=== PATIENT | male | born 1950 | race Caucasian/White ===

== ENCOUNTER 2018-05-17 19:20 | Inpatient (IN) | payer MEDICARE ==
[~2018-05-17 19:20] MED LIST: Iopamidol 370 76% 100 ML VIAL ONE
[2018-05-17 19:38] LABS: #Basophils 0.1 thou/uL (0.0-0.2); #Eosinphils 0.1 thou/uL (0.0-0.7); #Lymphocytes 1.7 thou/uL (1.20-3.40); #Monocytes 0.8 thou/uL (0.11-0.59); #Neutrophils 11.7 thou/uL (1.40-6.50); %Basophils 0.6 % (0.0-1.0); %Eosinophils 0.7 % (0.0-10.0); %Lymphocytes 11.5 % (21.0-51.0); %Monocytes 5.4 % (0.0-10.0); %Neutrophils 81.8 % (42.0-75.0); Hemoglobin 14.7 g/dL (14.0-18.0); Mean Corpuscular Hemoglobin 32.3 pg (27.0-31.0); Mean Corpuscular Volume 94.8 fL (78.0-98.0); Mean Platelet Volume 7.1 fL (7.4-10.4); Platelet Count 245 thou/uL (130-400); RBC Distribution Width 13.1 % (11.5-14.5); Red Blood Cell (RBC) Count 4.56 mill/uL (4.70-6.10); White Blood Cell (WBC) Count 14.3 thou/uL (4.8-10.8)
[2018-05-17 19:44] LABS: PTT 25.8 SEC (22.9-36.1); Prothrombin Time 12.9 SEC (12.0-14.7)
[2018-05-17] MEDS ORDERED: Aggrastat 12.5 MG/250 ML 250 ML ONE (19:56)
[2018-05-17] MEDS ORDERED: Heparin 10,000 UNITS/1 ML VIAL ONE (19:56)
[2018-05-17 19:57] LABS: ALT (SGPT) 14 U/L (8-55); AST (SGOT) 19 U/L (5-34); Albumin 4.3 g/dL (3.4-4.8); Alkaline Phosphatase 88 U/L (40-150); Anion Gap 17 mmol/L (10-20); BUN (Urea Nitrogen) 13 mg/dL (8.4-25.7); Bilirubin, Total 0.2 mg/dL (0.2-1.2); Calc. Creatinine Clearance 0 mL/min (70-130); Calcium 9.1 mg/dL (7.8-10.44); Carbon Dioxide 23 mmol/L (23-31); Chloride 105 mmol/L (98-107); Estimated GFR-MDRD 72; Globulin 2.8 g/dL (2.4-3.5); Glucose 143 mg/dL (80-115); Potassium 3.7 mmol/L (3.5-5.1); Protein, Total 7.1 g/dL (5.8-8.1); Sodium 141 mmol/L (136-145)
[2018-05-17] MEDS ORDERED: Nitroglycerin 0.4 MG TAB (25 Tab Bottle) SL PRN (20:13)
[2018-05-17] MEDS ORDERED: Aggrastat 12.5 MG/250 ML 250 ML IVPB SCH (20:15)
[2018-05-17] MEDS ORDERED: Communication Order-Pharmacy FS SCH (20:40)
[2018-05-17] MEDS ORDERED: Diazepam 5 MG TAB PO PRN (20:40)
[2018-05-17 20:46] LABS: CKMB 8.1 ng/mL (0-6.6)
[2018-05-17] MEDS ORDERED: Atorvastatin Calcium 40 MG TAB PO SCH (21:00)
[2018-05-17 21:02] LABS: Hemoglobin A1c 5.7 % (4.0-6.0)
[2018-05-17] MEDS ORDERED: Sodium Chloride 0.9% 250 ML 250 ML IV SCH (21:45)
[2018-05-17] MEDS: Morphine 4 MG/ML VIAL SLOW IVP PRN (22:06)
--- NOTE | 2018-05-17 22:11 | RAD ---
CHEST ONE VIEW PORTABLE: HISTORY: A 67-year-old male, preoperative, for open heart surgery. FINDINGS: Monitor leads overly the chest. Heart size is within normal limits. Lungs are clear. IMPRESSION: 1. No significant acute intrathoracic disease. 2. Atherosclerosis of the aorta. POS: JUN
--- NOTE | 2018-05-17 22:56 | HP ---
CHIEF COMPLAINT: Chest pain. HISTORY OF PRESENT ILLNESS: Mr. Lopez is a pleasant 67-year-old white gentleman, who comes to the hospital after 1 hour of chest pain. He was driving around, has a sudden onset of chest pain. EMS was called and they came to take him and he was air flighted into the hospital from [place] for anterior elevations on the EKG. He was brought in with about 6/10 chest pain. He was taken emergently to the catheterization lab, where he was found to have severe multivessel disease. The culprit vessel is probably an occluded diagonal that is flush occluded and we did not see where it comes out of the LAD. We just see very tiny collateral flow to it, so Surgery was consulted. His pain is much better controlled at this time. PAST MEDICAL HISTORY: 1. Hypertension. 2. Hyperlipidemia. 3. Osteoarthritis. PAST SURGICAL HISTORY: Carpal tunnel release just a week ago. SOCIAL HISTORY: Smokes a pack a day for about 50 years. No alcohol or drug use. OUTPATIENT MEDICATIONS: 1. Prednisone. 2. Uloric. 3. Pantoprazole. 4. Metoprolol succinate 200 mg a day. 5. Crestor 20 mg a day. ALLERGIES: SULFA DRUGS. REVIEW OF SYSTEMS: A 12-point review of systems was done and was found to be negative other than stated in the history of present illness. FAMILY HISTORY: No early coronary artery disease. PHYSICAL EXAMINATION: VITAL SIGNS: Temperature 97.2, pulse 99, respiratory rate 16, saturating 100% on 2 L, blood pressure 146/69. GENERAL: Awake, alert, and oriented x3, in no distress. HEENT: Normocephalic, atraumatic. NECK: Supple. LUNGS: Clear. CARDIOVASCULAR: S1, S2. No S3 or S4. No murmurs. ABDOMEN: Soft. Positive bowel sounds. EXTREMITIES: No edema. SKIN: Warm and dry. LABORATORY DATA: Laboratory work was reviewed. CBC with a white count of 14, hemoglobin of 14, hematocrit 43, platelet count 245. Coags were reviewed. Chemistries were reviewed. Troponin initially 0.8, a CK-MB of 8.1, normal GFR. Chest x-ray was unremarkable. Atherosclerosis of the aorta was seen. ASSESSMENT: 1. Acute anterior ST-elevation myocardial infarction. 2. Multivessel coronary artery disease. 3. Hyperlipidemia. 4. Hypertension. PLAN: 1. Flush occlusion of a diagonal branch, thought to be the culprit. This is a very small artery from what I can tell, and there is no area where we can try to open as we do not even see a stub to see where comes from. He does have multivessel disease and this is better treated with bypass surgery. Dr. Seymour has already evaluated the patient and we will plan on doing a coronary artery bypass grafting tomorrow morning. 2. Continue supportive care overnight. We will do an Aggrastat drip until 4:00 a.m. in preparation for his bypass tomorrow morning. 3. Continue other medications for now. 4. Full code. 5. Disposition. Pending clinical evolution. Job ID: [id number]
--- NOTE | 2018-05-18 02:25 | CON ---
DATE OF CONSULTATION: 05/17/2018 REASON FOR CONSULTATION: Evaluate the patient for coronary artery bypass grafting. HISTORY OF PRESENT ILLNESS: Mr. Lopez presented with history of chest pain beginning this evening. He was brought to the emergency department and found to have ST-elevation anteriorly, was urgently taken to the bottle labeler and found to have severe three-vessel disease. The culprit vessel is a small diagonal. He is chest pain free on the table with Aggrastat running. He has no previous cardiac history. He does have a history of hypertension, takes his antihypertensives at home. His peak troponin was 0.8 and CK-MB is 8.1. I have been asked to see him to discuss coronary artery bypass grafting. PAST MEDICAL HISTORY: 1. Hypertension. 2. Tobacco abuse. 3. Degenerative spine disease. PAST SURGICAL HISTORY: Multiple spine and orthopedic surgeries. ALLERGIES: SULFA. CURRENT MEDICATIONS: 1. Aspirin 81 mg daily. 2. Lipitor 80 mg at bedtime. SOCIAL HISTORY: He smokes half to one-pack of cigarettes a day. 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 PHYSICAL EXAMINATION: GENERAL: He is a well-developed, well-nourished man, resting comfortably in bed. VITAL SIGNS: His heart rate is 100 and regular, blood pressure is 147/89. HEENT: Sclerae nonicteric. Pupils are equal and round bilaterally. NECK: Supple. There is no carotid bruit. CHEST: Clear bilaterally with distant breath sounds. HEART: Rhythm is regular. ABDOMEN: Soft, nontender. EXTREMITIES: No cyanosis, clubbing, or edema. VASCULAR: Palpable carotid, radial, femoral, dorsalis pedis pulses bilaterally. VENOUS: There are no venous varicosities or venous stasis changes. LABORATORY DATA: Potassium is 3.7, creatinine is 1.03, hemoglobin is 14.7, and platelet count is 245,000. PT/INR is 1.0. ASSESSMENT AND PLAN: This is a pleasant 67-year-old gentleman with anterior ST-elevation myocardial infarction from very small diagonal. He otherwise has three-vessel disease including left anterior descending artery, circumflex, and right coronary artery, bypassable targets included left anterior descending artery, OM and distal right. Risks, benefits, and options of coronary artery bypass grafting were discussed with the patient and he is agreeable to proceed tomorrow. Job ID: [id number]
[2018-05-18] MEDS ORDERED: Nitroglycerin 50 MG/250 ML BOT 250 ML IVPB SCH (02:30)
[2018-05-18] MEDS: Morphine 4 MG/ML VIAL SLOW IVP PRN ×2 (02:40→06:07)
[2018-05-18 02:53] LABS: #Lymphocytes 1.1 thou/uL (1.20-3.40); #Monocytes 0.6 thou/uL (0.11-0.59); #Neutrophils 11.8 thou/uL (1.40-6.50); %Basophils 0.3 % (0.0-1.0); %Monocytes 4.1 % (0.0-10.0); %Neutrophils 87.5 % (42.0-75.0); Hemoglobin 13.3 g/dL (14.0-18.0); Mean Corpuscular HGB CONC 34.2 g/dL (32.0-36.0); Mean Corpuscular Hemoglobin 32.2 pg (27.0-31.0); Mean Corpuscular Volume 94.1 fL (78.0-98.0); Mean Platelet Volume 7.4 fL (7.4-10.4); Platelet Count 244 thou/uL (130-400); RBC Distribution Width 13.1 % (11.5-14.5); Red Blood Cell (RBC) Count 4.13 mill/uL (4.70-6.10); White Blood Cell (WBC) Count 13.5 thou/uL (4.8-10.8)
[2018-05-18 03:20] LABS: ALT (SGPT) 18 U/L (8-55); AST (SGOT) 95 U/L (5-34); Albumin 4.1 g/dL (3.4-4.8); Alkaline Phosphatase 82 U/L (40-150); Anion Gap 15 mmol/L (10-20); BUN (Urea Nitrogen) 11 mg/dL (8.4-25.7); Bilirubin, Total 0.3 mg/dL (0.2-1.2); Calc. Creatinine Clearance 117 mL/min (70-130); Calcium 8.6 mg/dL (7.8-10.44); Carbon Dioxide 20 mmol/L (23-31); Cardiac Risk 5.6 (Less than 4.5); Chloride 106 mmol/L (98-107); Cholesterol 203 mg/dl (< 200 Desired); Estimated GFR-MDRD Greater than 90; Globulin 2.4 g/dL (2.4-3.5); Glucose 159 mg/dL (80-115); HDL Cholesterol 36 mg/dL (>60 Neg Risk); LDL Cholesterol, Calculated 108 mg/dL; Potassium 4.2 mmol/L (3.5-5.1); Protein, Total 6.5 g/dL (5.8-8.1); Sodium 137 mmol/L (136-145); Triglycerides 296 mg/dL (Less than 150)
[2018-05-18 03:29] LABS: CKMB 150.8 ng/mL (0-6.6); Troponin I 10.414 ng/mL (< 0.028)
[2018-05-18] MEDS ORDERED: Metoprolol Tartrate 25 MG TAB PO SCH (05:45)
[2018-05-18] MEDS ORDERED: Albumin 5% 500 ML ONE (07:23)
[2018-05-18] MEDS ORDERED: Heparin 10,000 UNITS/1 ML VIAL 30,000 UNITS in Sodium Chloride 0.9% 1,000 ML FS SCH (08:00)
[2018-05-18] MEDS ORDERED: Norepinephrine 8 MG/0.9% NS 250 ML ONE ×2 (08:01→08:03)
[2018-05-18] MEDS ORDERED: Fentanyl 250 MCG/5 ML VIAL ONE (08:01)
[2018-05-18] MEDS ORDERED: Vecuronium 10 MG VIAL ONE ×2 (08:01→21:14)
[2018-05-18] MEDS ORDERED: Midazolam HCl 2 mg/2 ml Vial ONE (08:01)
[2018-05-18] MEDS ORDERED: Dexmedetomidine 200 MCG/2 ML VIAL ONE (08:02)
[2018-05-18] MEDS ORDERED: Potassium Chloride 20 MEQ/100 ML PREMIX BAG IVPB PRN (11:31)
[2018-05-18] MEDS ORDERED: Bisacodyl 5 MG TAB PO PRN (11:31)
[2018-05-18] MEDS ORDERED: Ondansetron PF 4 MG/2 ML Vial IVP PRN (11:31)
[2018-05-18] MEDS ORDERED: Mag-Al 1200 mg/1200 mg/30 ML UDCUP PO PRN (11:31)
[2018-05-18] MEDS ORDERED: Fentanyl 100 MCG/2 ML VIAL SLOW IVP PRN (11:31)
[2018-05-18] MEDS ORDERED: Magnesium 2 GM/50 ML 2 GM in Premix Bag 1 BAG IVPB SCH (11:31)
[2018-05-18] MEDS ORDERED: Promethazine HCl 25 MG/ML VIAL IM PRN (11:31)
[2018-05-18] MEDS ORDERED: Morphine 4 MG/ML VIAL SLOW IVP PRN (11:31)
[2018-05-18] MEDS ORDERED: Norepinephrine 8 MG/0.9% NS 250 ML IVPB PRN (11:31)
[2018-05-18] MEDS ORDERED: Hetastarch 6% 500 ML 500 ML IVPB PRN (11:31)
[2018-05-18] MEDS ORDERED: CEFAZOLIN/Water 2 GM/20 ML SYRINGE SLOW IVP SCH (11:31)
[2018-05-18] MEDS ORDERED: HYDROcodone/Acetaminophen 5/325 mg Tablet PO PRN ×2 (11:31)
[2018-05-18] MEDS ORDERED: Acetaminophen 325 MG TAB PO PRN (11:31)
[2018-05-18] MEDS ORDERED: hydrALAZINE 20 MG/ML VIAL SLOW IVP PRN (11:31)
[2018-05-18] MEDS ORDERED: Bisacodyl 10 MG SUPP PR PRN (11:31)
[2018-05-18] MEDS ORDERED: D5 1/2 NS w/20 mEq KCL 1,000 ML IV SCH (11:31)
[2018-05-18] MEDS ORDERED: Guaifenesin DM 100-10/5 ML UDCUP PO PRN (11:31)
[2018-05-18] MEDS ORDERED: Nitroglycerin 50 MG/250 ML BOT 250 ML IVPB PRN (11:31)
[2018-05-18] MEDS ORDERED: Dextrose 5% in Water 1,000 ML IV PRN (12:01)
[2018-05-18] MEDS ORDERED: Dextrose 50% Abboject 50 ML SYRINGE SLOW IVP PRN (12:01)
--- NOTE | 2018-05-18 12:10 | RAD ---
CHEST 1 VIEW: HISTORY: Heart surgery. FINDINGS: Comparison 05/17/2018. FINDINGS: Cardiac silhouette is magnified by projection. Pulmonary vasculature is upper limits of normal and a ccentuated by shallow inspiration. The tip of the endotracheal catheter overlies the thoracic inlet. The tip of a right subclavian cent ral venous catheter ascends to the right side of the neck. Mediastinal drain and left thoracostomy t ubes are in place without significant pneumothorax. Atelectasis at the right base. Focal nodular density projects over the right lateral lung base on the current exam. monitor and storage bin tender leads overlie the chest. IMPRESSION: 1. Postoperative changes of the chest since the previous exam. 2. Right-sided central venous catheter is favored to be a right subclavian catheter with tip directe d into the right internal jugular vein. 3. Possible right lateral lung base nodule. Continued followup with upright PA and lateral views of the chest is suggested. POS: AURELIANO
[2018-05-18] MEDS: Fentanyl 100 MCG/2 ML VIAL SLOW IVP PRN (12:12)
[2018-05-18] MEDS: Ketorolac Tromethamine 30 MG/ML VIAL IVP SCH ×3 (12:14→23:03)
[2018-05-18 12:21] LABS: INR-International Normal Ratio 1.3; PTT 31.6 SEC (22.9-36.1); Prothrombin Time 16.1 SEC (12.0-14.7)
[2018-05-18 12:36] LABS: Anion Gap 13 mmol/L (10-20); BUN (Urea Nitrogen) 10 mg/dL (8.4-25.7); Calc. Creatinine Clearance 121 mL/min (70-130); Calcium 7.7 mg/dL (7.8-10.44); Carbon Dioxide 20 mmol/L (23-31); Chloride 110 mmol/L (98-107); Estimated GFR-MDRD Greater than 90; Glucose 145 mg/dL (80-115); Potassium 4.8 mmol/L (3.5-5.1); Sodium 138 mmol/L (136-145)
[2018-05-18 12:42] LABS: Band 3 % (5-11); Hemoglobin 11.5 g/dL (14.0-18.0); Lymphocytes 6 % (21-51); MDiff Complete? YES; Mean Corpuscular HGB CONC 33.5 g/dL (32.0-36.0); Mean Corpuscular Hemoglobin 32.2 pg (27.0-31.0); Mean Platelet Volume 7.2 fL (7.4-10.4); Monocytes 16 % (0-10); Neutrophil 71 % (42-75); PLT Morphology Comment Appears Adequate; Platelet Count 192 thou/uL (130-400); RBC Distribution Width 13.2 % (11.5-14.5); Reactive Lymphocytes 4 % (0-10); Red Blood Cell (RBC) Count 3.57 mill/uL (4.70-6.10); White Blood Cell (WBC) Count 22.9 thou/uL (4.8-10.8)
[2018-05-18 12:45] LABS: Actual Bicarbonate (HCO3a) 20.5 mEq/L (22-28); CO2 Tension 49.5 mmHg (35.0-45.0); Calcium, Ionized 1.05 mmol/L (1.12-1.30); Carboxyhemoglobin (COHb) 1.7 gm% (0.0-3.0); Hemoglobin (Hb) 12.3 g/dL (14.0-18.0); O2 Tension (PaO2) 91.3 mmHg (> 80.0); Potassium - ABG Lab 4.35 mmol/L (3.70-5.30)
[2018-05-18] MEDS: Insulin Regular 300 UNITS/3 ML VIAL SC PRN ×4 (12:46→22:57)
[2018-05-18] MEDS ORDERED: Sodium Bicarb 50 MEQ/50 ML Abboject 8.4% SYRINGE IVP SCH (12:48)
[2018-05-18] MEDS ORDERED: Sodium Bicarb 50 MEQ/50 ML VIAL ONE ×2 (12:49→21:14)
[2018-05-18 13:27] LABS: ALV-art Gradient 132.025 (0-20); Puncture Site ALINE; pH, Arterial 7.24 (7.35-7.45)
[2018-05-18] MEDS: CEFAZOLIN 2 GM/50 ML-DEXTROSE 2 GM in Premix Bag 1 BAG IVPB SCH ×2 (13:28→20:59)
--- NOTE | 2018-05-18 13:35 | OP ---
DATE OF PROCEDURE: 05/18/2018 PREOPERATIVE DIAGNOSES: Coronary artery disease/status post ST-elevation myocardial infarction/hypertension/hyperlipidemia, and tobacco abuse. POSTOPERATIVE DIAGNOSES: Coronary artery disease/status post ST-elevation myocardial infarction/hypertension/hyperlipidemia, and tobacco abuse. PROCEDURES PERFORMED: 1. Coronary artery bypass grafting x3 - left internal mammary artery 1.5 mm distal left anterior descending-good conduit, small target. 2. Reverse saphenous vein to 1.5 mm PDA-good conduit, small target. 3. Reverse saphenous vein to 2.0 mm terminal OM-good conduit and target. Note that both the PDA and terminal OM grafts were brought around the right side of the heart. There were no bypassable diagonal targets. CO-SURGEON: Dr. Tommie Smith. ANESTHESIA: General endotracheal - Dr. Sony Jones. PUMP TIME: 53 minutes. CROSS-CLAMP TIME: 29 minutes. LOW CORE TEMPERATURE: 34 degrees Celsius. MANAGER DRUG: Orestes Whitaker DRAINS: 24-Occitan chest tubes x2. DRIPS: None. TRANSFUSIONS: None. DESCRIPTION OF PROCEDURE: After consent was obtained, the patient was brought to operating room, and placed in supine position on the operating table. Appropriate central line was placed, and general endotracheal anesthesia induced. Chest, abdomen, and legs were prepped and draped in usual sterile fashion. Greater saphenous vein was harvested from the left thigh utilizing an endoscopic technique. Wound was closed in layers. Median sternotomy was performed. Left internal mammary artery was harvested as a pedicle graft. The patient was systemically heparinized. The distal pedicle was divided with the use of papaverine. pericardium was divided with electrocautery. Pericardial stay sutures were placed. Aortic and atrial cannulation was performed. After adequate heparinization, retrograde priming was performed. The patient was placed on cardiopulmonary bypass. Distal targets were marked. Aortic cross-clamp was applied, and antegrade sanguineous cardioplegic arrest obtained. 1 L of antegrade cold [place] cardioplegia was given. Topical cold solution was used. Reverse saphenous vein was anastomosed to PDA in an end-to-side fashion with running 7-0 Prolene suture. Anastomosis was tested and it was hemostatic. Reverse saphenous vein was anastomosed to terminal OM in an end-to-side fashion with running 7-0 Prolene suture. Anastomosis was tested and it was hemostatic. Mammary artery was brought through a window in the pericardium and anastomosed the LAD in an end-to-side fashion with running 7-0 Prolene suture. On release, mammary claims good occluding anastomosis and good distal flow. Pedicles secured with interrupted six-0 Prolene suture. The cross-clamp was removed and partial occluding clamp placed. Saphenous veins were anastomosed. Grafts were marked with a clip. Partial occluding clamp was removed and graft tear. Anastomoses were inspected for hemostasis which was good. The patient was warmed and weaned from cardiopulmonary bypass. After resumption of sinus rhythm, good hemodynamics, temperature greater than 36.5, bypass was discontinued. Transfusion was given. Protamine was administered. Decannulation performed, and pursestring suture secured. A 24-Occitan chest tubes x2 placed in the mediastinum. The aortic cannulation site was reinforced with 4-0 Prolene suture. After adequate hemostasis had been obtained, the sternum was treated with vancomycin paste. The sternum was closed with #7 wire, three in the manubrium, and one of the distal sternum. Forceps ties were placed in the body of the sternum. Sternum was treated with platelet rich plasma. Wires were twisted. The ties were tied and cut. Wound was irrigated. Platelet poor plasma was closed in multiple layers. Dermabond was applied to the skin incision. Sterile dressings were applied. The patient transferred to the intensive care unit in stable critical condition inside. Job ID: [id number] MTDD
[2018-05-18 17:43] LABS: Hemoglobin 11.9 g/dL (14.0-18.0)
[2018-05-18 17:51] LABS: Potassium 4.5 mmol/L (3.5-5.1)
--- NOTE | 2018-05-18 18:38 | PDOC.CTH ---
Cardiology Progress Note - Subjective He had his CABG x 3 today. Currently intubated at time of my evaluation. - Objective Vital Signs Temp Pulse Resp BP Pulse Ox 05/18/18 16:12 80 14 92 L 05/18/18 13:51 77 16 96 05/18/18 13:25 81 14 95 05/18/18 12:25 81 109/51 L 05/18/18 12:11 77 13 97 05/18/18 12:00 13 97 05/18/18 07:14 100 05/18/18 07:00 97.7 F Weight 207 lb 7.28 oz 05/17/18 05/18/18 05/19/18 06:59 06:59 06:59 Intake Total 690 230 Output Total 975 585 Balance -285 -355 - Physical Examination General/Neuro: other: (S/I) Neck: no JVD present Lungs: unlabored respirations Heart: RRR Abdomen: NT/ND Extremities: + edema B (1+) - Telemetry Telemetry Rhythm: NSR - Labs Result Diagrams: 05/18/18 17:26 05/18/18 17:26 Troponin/CKMB CK-MB (CK-2) 150.8 ng/mL (0-6.6) H* 05/18/18 02:47 Troponin I 10.414 ng/mL (< 0.028) H* 05/18/18 02:47 - Assessment/Plan 1. Anterolateral STEMI 2. Severe multivessel CAD. 3. S/P CABG x 3, RUELAS to LAD, SVG to OM and SVG to RCA. PLAN: - Continue supportive care. - Aspirin and statin for life. - BB and ACEI once BP allows and tolerating PO.
[2018-05-18] MEDS ORDERED: Famotidine/PF 20 mg/2ml Vial SLOW IVP SCH (21:00)
[2018-05-18] MEDS ORDERED: Heparin 30,000 units/30 ml VIAL ONE (21:14)
[2018-05-18] MEDS ORDERED: Heparin 5,000 UNITS/ML VIAL ONE (21:14)
[2018-05-18] MEDS ORDERED: Aminocaproic Acid 5 GM/20 ML VIAL ONE (21:14)
[2018-05-18] MEDS ORDERED: Thrombin 5000 UNITS/5 ML VIAL ONE (21:14)
[2018-05-18] MEDS ORDERED: CEFAZOLIN 1 GM VIAL ONE (21:14)
[2018-05-18] MEDS ORDERED: PROPOFOL 200 MG/20 ML VIAL ONE (21:14)
[2018-05-18] MEDS ORDERED: Lidocaine 1% PF 5 ML VIAL ONE (21:14)
[2018-05-18] MEDS ORDERED: Cardioplegic Soln 1,000 ML BAG ONE (21:14)
[2018-05-18] MEDS ORDERED: Papaverine 60 MG/2 ML VIAL ONE (21:14)
[2018-05-18] MEDS ORDERED: Mannitol 12.5 GM/50 ML ONE (21:14)
[2018-05-18] MEDS ORDERED: Protamine Sulfate 250 MG/25 ML VIAL ONE (21:14)
[2018-05-18] MEDS ORDERED: Magnesium 5 GM/10 ML VIAL ONE (21:14)
[2018-05-18] MEDS ORDERED: Potassium Chloride 60 MEQ/30 ML VIAL ONE (21:14)
[2018-05-18] MEDS ORDERED: Calcium Chloride 1 GM/10 ML Abboject SYRINGE ONE (21:14)
[2018-05-18] MEDS ORDERED: Sterile Water 10 ML VIAL ONE (21:14)
[2018-05-18] MEDS ORDERED: Lidocaine 2% PF 100 mg/5 ml Syringe ONE (21:14)
[2018-05-19 03:58] LABS: Anion Gap 12 mmol/L (10-20); BUN (Urea Nitrogen) 13 mg/dL (8.4-25.7); Calc. Creatinine Clearance 110 mL/min (70-130); Calcium 7.9 mg/dL (7.8-10.44); Carbon Dioxide 22 mmol/L (23-31); Chloride 109 mmol/L (98-107); Estimated GFR-MDRD 87; Glucose 138 mg/dL (80-115); Potassium 4.3 mmol/L (3.5-5.1); Sodium 139 mmol/L (136-145)
[2018-05-19] MEDS: Insulin Regular 300 UNITS/3 ML VIAL SC PRN (04:50)
[2018-05-19] MEDS: Ketorolac Tromethamine 30 MG/ML VIAL IVP SCH ×3 (05:01→18:21)
[2018-05-19] MEDS: CEFAZOLIN 2 GM/50 ML-DEXTROSE 2 GM in Premix Bag 1 BAG IVPB SCH (05:01)
[2018-05-19 06:08] LABS: #Lymphocytes 1.5 thou/uL (1.20-3.40); #Monocytes 0.9 thou/uL (0.11-0.59); #Neutrophils 8.8 thou/uL (1.40-6.50); %Basophils 0.3 % (0.0-1.0); %Eosinophils 0.3 % (0.0-10.0); %Lymphocytes 13.4 % (21.0-51.0); Mean Corpuscular HGB CONC 32.8 g/dL (32.0-36.0); Mean Corpuscular Hemoglobin 31.5 pg (27.0-31.0); Mean Corpuscular Volume 95.8 fL (78.0-98.0); Mean Platelet Volume 7.9 fL (7.4-10.4); Platelet Count 178 thou/uL (130-400); RBC Distribution Width 13.2 % (11.5-14.5); Red Blood Cell (RBC) Count 3.51 mill/uL (4.70-6.10); White Blood Cell (WBC) Count 11.3 thou/uL (4.8-10.8)
--- NOTE | 2018-05-19 08:39 | RAD ---
AP VIEW CHEST: 05/19/2018 HISTORY: Open heart surgery. COMPARISON: 05/18/2018 FINDINGS: AP view chest demonstrates a right subclavian central line migrating up the right internal jugular. Sternotomy wires are seen. A small left-sided pleural effusion is seen. The area of soft tissue density in the right lung base is difficult to visualize on this radiograph a nd appears to be less pronounced. Correlate with follow-up chest radiographs with PA and lateral views of the chest, to better evaluate the right lung base, electively. The patient has been extubated. The left-sided chest tube appears to have been removed. A mediastin al drain is in place. No evidence of pneumothorax is seen. IMPRESSION: 1. Interval extubation of the patient. 2. Interval development of a small left-sided pleural effusion. POS: AURELIANO
[2018-05-19] MEDS: Aspirin 325 MG TAB PO SCH (08:45)
[2018-05-19] MEDS: Magnesium 2 GM/50 ML 2 GM in Premix Bag 1 BAG IVPB SCH (08:46)
--- NOTE | 2018-05-19 17:07 | PDOC.CTH ---
Cardiology Progress Note - Subjective He is now extubated. Doing very well. - Objective Vital Signs Temp Pulse Resp Pulse Ox 05/19/18 14:12 100 05/19/18 14:11 91 18 100 05/19/18 12:00 97.8 F 05/19/18 08:00 90 L 05/19/18 07:11 94 L 05/19/18 07:09 86 14 94 L Weight 208 lb 8.917 oz 05/18/18 05/19/18 05/20/18 06:59 06:59 06:59 Intake Total 690 1232 400 Output Total 975 1295 370 Balance -285 -63 30 - Physical Examination General/Neuro: alert & oriented x3, NAD Neck: no JVD present Lungs: unlabored respirations, other: (Coarse breath sounds. ) Heart: RRR Abdomen: NT/ND Extremities: + edema B (1+) - Telemetry Telemetry Rhythm: NSR - Labs Result Diagrams: 05/19/18 03:36 05/19/18 03:36 Troponin/CKMB CK-MB (CK-2) 150.8 ng/mL (0-6.6) H* 05/18/18 02:47 Troponin I 10.414 ng/mL (< 0.028) H* 05/18/18 02:47 - Assessment/Plan 1. Anterolateral STEMI 2. Severe multivessel CAD. 3. S/P CABG x 3, RUELAS to LAD, SVG to OM and SVG to RCA. PLAN: - Aspirin and statin for life. - BB and ACEI once BP allows and tolerating PO.
--- NOTE | 2018-05-19 19:32 | CON ---
DATE OF CONSULTATION: 05/19/2018 HISTORY OF PRESENT ILLNESS: Mr. Lopez is a pleasant 67-year-old male, who underwent coronary artery bypass grafting yesterday morning with RUELAS to his LAD , saphenous vein to his PDA, and saphenous vein to his terminal obtuse marginal. He has been extubated per protocol. He looks reasonably well and says he is comfortable, though he is complaining of a cough because whenever he lays down flat. PAST MEDICAL HISTORY: Remarkable for lipid disorder, hypertension, and degenerative arthritis. PAST SURGICAL HISTORY: He recently had a carpal tunnel release. FAMILY HISTORY: Not obtained. SOCIAL HISTORY: He is pack-a-day smoker. His last cigarette was on a tractor just prior to his admission, not a daily drinker. MEDICATIONS: Prior to admission, he was on: 1. Prednisone. 2. Uloric. 3. Protonix. 4. Metoprolol. 5. Crestor. ALLERGIES: HE REPORTS ALLERGY TO SULFA DRUGS. REVIEW OF SYSTEMS: Ten-point review of systems completed, otherwise negative except for some mild chest and leg discomfort after surgery. PHYSICAL EXAMINATION: GENERAL: He is in no distress. VITAL SIGNS: Blood pressure 118/82, heart rate 98, respiratory rate 14, and oximetry is 94%. HEENT: Pupils are equal. Sclerae are anicteric. NECK: Supple. No lymphadenopathy. LUNGS: Remarkable for scattered wheezes. HEART: Regular rhythm. S1 and S2 are normal. ABDOMEN: Soft and nontender. EXTREMITIES: Without clubbing, cyanosis, or edema. IMAGING STUDIES: Chest radiograph suggestive of atelectasis or small effusion of the left base. LABORATORY DATA: White count 11.3, hemoglobin 11.0, platelets 178. Sodium 139, potassium 4.3, chloride 109, bicarb 22, BUN 13, and creatinine 0.88. IMPRESSION: 1. Status post coronary artery bypass grafting. 2. Probable chronic obstructive pulmonary disease with mild bronchospasm. 3. History of an anterolateral myocardial infarction. PLAN: We will be happy to follow with the other physicians caring for Mr. Lopez, underwent my visit with him, try to place him on some nasal ipratropium, see if this helps with his cough. TIME SPENT: This was a 70-minute consult, with greater than 50% of the time spent on the unit coordinating care. Job ID: [id number] [facility]
[2018-05-19] MEDS ORDERED: Digoxin 0.5 MG/2 ML AMP ONE (19:42)
[2018-05-19] MEDS ORDERED: Digoxin 0.5 MG/2 ML AMP SLOW IVP SCH (19:45)
[2018-05-19] MEDS ORDERED: Amiodarone HCl 150 MG in Dextrose 5% in Water 100 ML IVPB SCH (19:45)
[2018-05-19] MEDS: Amiodarone HCl 450 MG in Dextrose 5% in Water 250 ML IVPB SCH (20:02)
[2018-05-19] MEDS: Atorvastatin Calcium 40 MG TAB PO SCH (21:15)
[2018-05-19] MEDS: Ipratropium Bromide 0.06% Nasal Inhaler 15ml NASAL SCH (21:15)
[2018-05-19] MEDS: Fentanyl 100 MCG/2 ML VIAL SLOW IVP PRN (21:59)
[2018-05-19] MEDS: Digoxin 0.5 MG/2 ML AMP SLOW IVP SCH (22:35)
[2018-05-20] MEDS: Ketorolac Tromethamine 30 MG/ML VIAL IVP SCH ×4 (00:29→18:27)
[2018-05-20] MEDS: Metoprolol Tartrate 5 MG/5 ML VIAL IVP SCH ×2 (00:32→03:27)
[2018-05-20] MEDS: Amiodarone HCl 450 MG in Dextrose 5% in Water 250 ML IVPB SCH ×2 (04:00→18:27)
[2018-05-20 04:43] LABS: Anion Gap 10 mmol/L (10-20); BUN (Urea Nitrogen) 14 mg/dL (8.4-25.7); Calc. Creatinine Clearance 116 mL/min (70-130); Calcium 8.1 mg/dL (7.8-10.44); Carbon Dioxide 25 mmol/L (23-31); Chloride 106 mmol/L (98-107); Estimated GFR-MDRD Greater than 90; Glucose 129 mg/dL (80-115); Potassium 4.3 mmol/L (3.5-5.1); Sodium 137 mmol/L (136-145)
[2018-05-20] MEDS: Digoxin 0.5 MG/2 ML AMP SLOW IVP SCH (05:59)
[2018-05-20 07:51] LABS: Actual Bicarbonate (HCO3a) 21.6 mEq/L (22-28); Analyzer IN Cardio OR; Base Excess (BEa) -4.6 mEq/L (-2.0 to +3.0); CO2 Tension 44.7 mmHg (35.0-45.0); Calcium, Ionized 1.05 mmol/L (1.12-1.30); Carboxyhemoglobin (COHb) 0.7 gm% (0.0-3.0); Hemoglobin (Hb) 11.1 g/dL (14.0-18.0); O2 Tension (PaO2) 408.9 mmHg (> 80.0); Potassium - ABG Lab 4.59 mmol/L (3.70-5.30)
[2018-05-20 07:52] LABS: Actual Bicarbonate (HCO3v) 23 mEq/L (22-28); Analyzer IN Cardio OR; Base Excess -3.9 mEq/L (-2.0 to +3.0); Calcium, Ionized 0.98 mmol/L (1.16-1.32); Chloride (ABG LAB) 106 mmol/L (98-106); Hemoglobin (Hb) 9.2 g/dL (12.6-17.4); Sodium 134.5 mmol/L (133-146); pH (venous) 7.29 (7.32-7.43)
[2018-05-20 07:52] LABS: Actual Bicarbonate (HCO3a) 23.2 mEq/L (22-28); Analyzer IN Cardio OR; CO2 Tension 47.1 mmHg (35.0-45.0); Calcium, Ionized 0.95 mmol/L (1.12-1.30); Carboxyhemoglobin (COHb) 0.2 gm% (0.0-3.0); O2 Tension (PaO2) 348.1 mmHg (> 80.0); Potassium - ABG Lab 4.87 mmol/L (3.70-5.30); pH, Arterial 7.31 (7.35-7.45)
[2018-05-20 07:53] LABS: Actual Bicarbonate (HCO3a) 19.6 mEq/L (22-28); Analyzer IN Cardio OR; Base Excess (BEa) -4.9 mEq/L (-2.0 to +3.0); CO2 Tension 34.5 mmHg (35.0-45.0); Calcium, Ionized 1.02 mmol/L (1.12-1.30); Carboxyhemoglobin (COHb) 0.8 gm% (0.0-3.0); O2 Tension (PaO2) 441.7 mmHg (> 80.0); Potassium - ABG Lab 3.98 mmol/L (3.70-5.30); pH, Arterial 7.37 (7.35-7.45)
[2018-05-20 07:53] LABS: Actual Bicarbonate (HCO3a) 20.2 mEq/L (22-28); Analyzer IN Cardio OR; Base Excess (BEa) -3.4 mEq/L (-2.0 to +3.0); CO2 Tension 32.3 mmHg (35.0-45.0); Calcium, Ionized 1.03 mmol/L (1.12-1.30); Carboxyhemoglobin (COHb) 1.5 gm% (0.0-3.0); Hemoglobin (Hb) 12.5 g/dL (14.0-18.0); O2 Tension (PaO2) 417.3 mmHg (> 80.0); Potassium - ABG Lab 3.84 mmol/L (3.70-5.30); pH, Arterial 7.42 (7.35-7.45)
[2018-05-20 07:59] LABS: Puncture Site ALINE
[2018-05-20 07:59] LABS: Puncture Site ALINE
[2018-05-20 08:00] LABS: Puncture Site ALINE
[2018-05-20 08:00] LABS: Puncture Site ALINE
--- NOTE | 2018-05-20 08:14 | RAD ---
PORTABLE UPRIGHT FRONTAL CHEST RADIOGRAPH: Date: 05/20/18 COMPARISON: 05/19/18. HISTORY: Evaluate chest following open heart surgery. FINDINGS: Dense pleural and parenchymal opacity noted in the inferior left lower lobe/lung base. Heart and medi astinal contours are stable. Midline sternotomy wires are noted. There is a vascular catheter on the right extending into the neck and incompletely imaged on this exam, stable. Drainage catheter overlying the left hemithorax and mediastinum on the prior examination have been re moved. IMPRESSION: Increased density in the left base, nonspecific. Postoperative changes as detailed above. POS: AURELIANO
[2018-05-20 09:17] VITALS: BMI 31.6
[2018-05-20] MEDS: Aspirin 325 MG TAB PO SCH (09:17)
[2018-05-20] MEDS: Magnesium 2 GM/50 ML 2 GM in Premix Bag 1 BAG IVPB SCH (09:18)
[2018-05-20] MEDS: Ipratropium Bromide 0.06% Nasal Inhaler 15ml NASAL SCH ×2 (09:18→22:03)
[2018-05-20] MEDS ORDERED: diphenhydrAMINE 25 MG CAP PO PRN (11:31)
[2018-05-20] MEDS ORDERED: Guaifenesin DM 100-10/5 ML UDCUP PO PRN (11:31)
[2018-05-20] MEDS ORDERED: Zolpidem Tartrate 5 MG TAB PO PRN (11:31)
[2018-05-20] MEDS ORDERED: Nitroglycerin 0.4 MG TAB (25 Tab Bottle) SL PRN (11:31)
[2018-05-20] MEDS ORDERED: Bisacodyl 10 MG SUPP PR PRN (11:31)
[2018-05-20] MEDS ORDERED: Milk Of Magnesia 30 ML UDCUP PO PRN (11:31)
[2018-05-20] MEDS ORDERED: Bisacodyl 5 MG TAB PO PRN (11:31)
[2018-05-20] MEDS ORDERED: Mineral Oil ENEMA PR PRN (11:31)
[2018-05-20] MEDS ORDERED: Artificial Tear Sol 15 ML BOT EA EYE PRN (11:31)
[2018-05-20] MEDS ORDERED: Carvedilol 3.125 MG TAB PO SCH (12:15)
[2018-05-20] MEDS ORDERED: Furosemide 40 MG TAB PO SCH (12:15)
[2018-05-20] MEDS ORDERED: Potassium Chloride 10 MEQ TAB PO SCH (12:15)
--- NOTE | 2018-05-20 16:30 | PRG ---
DATE OF SERVICE: 05/20/2018 SUBJECTIVE: Mr. Lopez is doing great. He is scheduled to be transferred out of the Critical Care Unit. OBJECTIVE: VITAL SIGNS: Heart rates in the 80s, blood pressure 127/78, and respiratory rate 17. Intake and output, positive 467. LUNGS: His wheezes are improved on examining his chest. HEART: Regular rhythm. ABDOMEN: Soft and nontender. EXTREMITIES: Without asymmetry or edema. LABORATORY DATA: White count yesterday was 11.3, hemoglobin 11.0, and platelets 178. Sodium 137, potassium 4.3, chloride 106, bicarbonate 25, BUN 14, creatinine 0.84, and glucose 129. IMPRESSION: 1. Status post coronary artery bypass grafting. 2. Underlying chronic obstructive pulmonary disease with mild bronchospasm. 3. Atelectasis and small effusion at left base on chest radiograph. PLAN: Continue supportive care. Transfer out. Physical therapy. He says he is ready to go home, but he wants a dressing taken off his leg. I have explained to him will be here at least few more days. Job ID: [id number]
--- NOTE | 2018-05-20 17:40 | PDOC.CTH ---
Cardiology Progress Note - Subjective Doing better. CT out. More comfortable. No BM's but passing gas. Went into afib overnight was started on amiodaron drip and back in sinus. - Objective Vital Signs Temp Pulse Pulse Pulse Resp BP BP 05/20/18 13:35 88 89 116/73 130/77 05/20/18 13:16 89 21 H 05/20/18 12:00 98.7 F 05/20/18 08:00 98.9 F 05/20/18 06:40 05/20/18 06:38 82 19 05/20/18 05:59 85 Pulse Ox Pulse Ox Pulse Ox 05/20/18 13:35 97 95 05/20/18 13:16 98 05/20/18 12:00 05/20/18 08:00 95 05/20/18 06:40 99 05/20/18 06:38 99 05/20/18 05:59 Weight 207 lb 10.807 oz 05/19/18 05/20/18 05/21/18 06:59 06:59 06:59 Intake Total 1232 1427 550 Output Total 1295 960 680 Balance -63 467 -130 - Physical Examination General/Neuro: alert & oriented x3, NAD Neck: no JVD present Lungs: unlabored respirations Heart: RRR Abdomen: NT/ND Extremities: + edema B (1+) - Telemetry Telemetry Rhythm: NSR - Labs Result Diagrams: 05/19/18 03:36 05/20/18 04:11 Troponin/CKMB CK-MB (CK-2) 150.8 ng/mL (0-6.6) H* 05/18/18 02:47 Troponin I 10.414 ng/mL (< 0.028) H* 05/18/18 02:47 - Assessment/Plan 1. Anterolateral STEMI 2. Severe multivessel CAD. 3. S/P CABG x 3, RUELAS to LAD, SVG to OM and SVG to RCA. 4. Possible COPD. 5. Post op afib PLAN: - Aspirin and statin for life. - Continue low dose BB - ACEI once BP allows. - Continue amiodarone drip for now,. Will switch to PO in the morning if he remains in sinus.
[2018-05-20] MEDS: Mometasone 200 MCG HFA INHALER INH SCH (19:14)
[2018-05-20] MEDS: Atorvastatin Calcium 40 MG TAB PO SCH (21:55)
[2018-05-20] MEDS: Carvedilol 3.125 MG TAB PO SCH (21:55)
[2018-05-21] MEDS: Ketorolac Tromethamine 30 MG/ML VIAL IVP SCH ×3 (00:26→13:13)
[2018-05-21] MEDS: Mometasone 200 MCG HFA INHALER INH SCH ×2 (06:46→18:47)
[2018-05-21] MEDS: Carvedilol 3.125 MG TAB PO SCH ×2 (08:23→20:20)
[2018-05-21] MEDS: Furosemide 40 MG TAB PO SCH (08:23)
[2018-05-21] MEDS: Aspirin 325 mg Enteric Coated Tablet PO SCH (08:23)
[2018-05-21] MEDS: Ipratropium Bromide 0.06% Nasal Inhaler 15ml NASAL SCH ×2 (08:23→21:54)
[2018-05-21] MEDS: Potassium Chloride 10 MEQ TAB PO SCH (08:23)
[2018-05-21] MEDS: Amiodarone HCl 450 MG in Dextrose 5% in Water 250 ML IVPB SCH (08:46)
[2018-05-21] MEDS ORDERED: Amiodarone 200 MG TAB PO SCH ×2 (09:30→10:00)
[2018-05-21] MEDS ORDERED: Mometasone/Formoterol 120 PUFF INHALER INH SCH (11:15)
--- NOTE | 2018-05-21 11:55 | PRG ---
DATE OF SERVICE: 05/21/2018 SUBJECTIVE: Hira Lopez is feeling much better. He has rhonchi on the right on exam this morning, but this cleared with cough. OBJECTIVE: VITAL SIGNS: He is afebrile. Heart rate 76, respiratory rate 16, 96% on room air, blood pressure 143/67. LUNGS: Clear as I mentioned after coughing. HEART: Regular rhythm. ABDOMEN: Soft. LABORATORY DATA: White count 11.3, hemoglobin 11.0 two days ago. There is no new lab today. IMPRESSION: 1. Probable underlying chronic obstructive pulmonary disease. I offered to see me in 3 to 4 weeks after discharge. He continues to improve. He probably does not need to go home with any inhaled medications more than perhaps Symbicort . 2. Status post coronary artery bypass grafting. 3. Tobacco use up until admission. He says he has done with smoking. He was again counseled about this. He will be seen in followup in 3 to 4 weeks. Job ID: [id number]
--- NOTE | 2018-05-21 16:07 | PDOC.CTH ---
Cardiology Progress Note - Subjective Doing much better today. Walking without issues. Had BM's. - Objective Vital Signs Temp Pulse Pulse Pulse Resp BP BP 05/21/18 13:05 98 F 84 20 05/21/18 11:35 79 18 05/21/18 11:28 74 74 124/72 135/71 05/21/18 08:34 81 84 143/67 H 128/68 05/21/18 07:52 98 F 76 16 05/21/18 06:46 67 18 05/21/18 06:42 67 18 BP Pulse Ox Pulse Ox Pulse Ox 05/21/18 13:05 129/74 94 L 05/21/18 11:35 95 05/21/18 11:28 97 94 L 05/21/18 08:34 95 95 05/21/18 07:52 122/58 L 96 05/21/18 06:46 98 05/21/18 06:42 98 Weight 208 lb 3.2 oz 05/20/18 05/21/18 05/22/18 06:59 06:59 06:59 Intake Total 1427 1200.4 Output Total 960 1130 Balance 467 70.4 - Physical Examination General/Neuro: alert & oriented x3, NAD Neck: no JVD present Lungs: CTA, unlabored respirations Heart: RRR Abdomen: NT/ND Extremities: other: (no edema) - Telemetry Telemetry Rhythm: NSR - Labs Result Diagrams: 05/19/18 03:36 05/20/18 04:11 Troponin/CKMB CK-MB (CK-2) 150.8 ng/mL (0-6.6) H* 05/18/18 02:47 Troponin I 10.414 ng/mL (< 0.028) H* 05/18/18 02:47 - Assessment/Plan 1. Anterolateral STEMI 2. Severe multivessel CAD. 3. S/P CABG x 3, RUELAS to LAD, SVG to OM and SVG to RCA. 4. Possible COPD. 5. Post op afib PLAN: - Aspirin and statin for life. - Continue low dose BB - Will add low dose ACEI. - Switch to PO amiodarone load.
[2018-05-21] MEDS: Mag-Al 1200 mg/1200 mg/30 ML UDCUP PO PRN (18:16)
[2018-05-21] MEDS: Mometasone/Formoterol 120 PUFF INHALER INH SCH ×2 (18:46→18:48)
[2018-05-21] MEDS: Amiodarone 200 MG TAB PO SCH (20:20)
[2018-05-21] MEDS: Atorvastatin Calcium 40 MG TAB PO SCH (20:20)
[2018-05-22] MEDS: Mometasone/Formoterol 120 PUFF INHALER INH SCH (06:47)
[2018-05-22] MEDS: Mometasone 200 MCG HFA INHALER INH SCH (06:51)
[2018-05-22] MEDS: Mag-Al 1200 mg/1200 mg/30 ML UDCUP PO PRN ×2 (08:10→14:51)
[2018-05-22] MEDS: Amiodarone 200 MG TAB PO SCH (08:11)
[2018-05-22] MEDS: Aspirin 325 mg Enteric Coated Tablet PO SCH (08:12)
[2018-05-22] MEDS: Potassium Chloride 10 MEQ TAB PO SCH (08:12)
[2018-05-22] MEDS: Carvedilol 3.125 MG TAB PO SCH (08:12)
[2018-05-22] MEDS: Furosemide 40 MG TAB PO SCH (08:12)
[2018-05-22] MEDS ORDERED: Amiodarone 200 MG TAB PO SCH (09:00)
[2018-05-22] MEDS ORDERED: Lisinopril 2.5 MG TAB PO SCH (09:00)
[2018-05-22 13:33] VITALS: BP 114/86; TEMP 96.9
--- NOTE | 2018-05-22 17:27 | DIS ---
DATE OF ADMISSION: 05/17/2018 DATE OF DISCHARGE: 05/22/2018 PRINCIPAL DIAGNOSES: Coronary artery disease with ST-elevation myocardial infarction. PROCEDURES PERFORMED: Cardiac catheterization on 05/17/2018, coronary artery bypass grafting x3 with left internal mammary artery to the distal left anterior descending and reverse greater saphenous vein graft from aorta to the PDA and to terminal obtuse marginal on 05/18/2018. HISTORY OF PRESENT ILLNESS AND HOSPITAL COURSE: The patient is a 67-year-old man, who developed chest pain, was found to have anterior ST elevation on EKG. He underwent emergent coronary artery bypass grafting and found to have severe 3-vessel coronary artery disease and was taken in stable condition in the following morning for surgical revascularization. Beta blockade was held due to COPD initially, but he tolerated the institution of low-dose Coreg. He had a brief episode of atrial fibrillation that was brought under control with amiodarone and he had no recurrence of it with transition from IV amiodarone to oral amiodarone. He is now being discharged home on postoperative day 4, doing well with prescriptions for amiodarone 200 mg a day, aspirin 325 mg a day, Coreg 3.125 mg b.i.d., Lasix 40 mg a day for 5-day course, and Asmanex inhaler has been written in prescription for [place] as needed for pain. Job ID: [id number]
== END 2018-05-22 17:40 | disposition home or self-care (01) | DRG 234 ==
LOC: ERS 19:20 → CCU 19:45 → 2NO 05-20 17:45
PROVIDERS: ADMIT Internal Medicine Cardiovascular Disease; ATTEND Internal Medicine Cardiovascular Disease
PROC: 4A023N7 Measurement of Cardiac Sampling and Pressure, Left Heart, Percutaneous Approach (ICD-10-PCS; 2018-05-17)
PROC: B2111ZZ Fluoroscopy of Multiple Coronary Arteries using Low Osmolar Contrast (ICD-10-PCS; 2018-05-17)
PROC: B2151ZZ Fluoroscopy of Left Heart using Low Osmolar Contrast (ICD-10-PCS; 2018-05-17)
PROC: 02100Z9 Bypass Coronary Artery, One Artery from Left Internal Mammary, Open Approach (ICD-10-PCS; principal; 2018-05-18)
PROC: 0211093 Bypass Coronary Artery, Two Arteries from Coronary Artery with Autologous Venous Tissue, Open Approach (ICD-10-PCS; 2018-05-18)
PROC: 06BQ4ZZ Excision of Left Saphenous Vein, Percutaneous Endoscopic Approach (ICD-10-PCS; 2018-05-18)
PROC: 5A1221Z Performance of Cardiac Output, Continuous (ICD-10-PCS; 2018-05-18)
DX: I21.09 ST elevation (STEMI) myocardial infarction involving other coronary artery of anterior wall (principal); J98.11 Atelectasis; I97.190 Other postprocedural cardiac functional disturbances following cardiac surgery; I25.119 Atherosclerotic heart disease of native coronary artery with unspecified angina pectoris; I10 Essential (primary) hypertension; E78.5 Hyperlipidemia, unspecified; M19.90 Unspecified osteoarthritis, unspecified site; F17.210 Nicotine dependence, cigarettes, uncomplicated; Z88.2 Allergy status to sulfonamides; J44.9 Chronic obstructive pulmonary disease, unspecified; I48.91 Unspecified atrial fibrillation
CPT/HCPCS: 36416; 71045; 80048; 80053; 80061; 82553; 82805; 83036; 84484; 85025; 85347; 85610; 85730; 86850; 86900; 86901; 93005; 93010; 93306; 93458; 93798; 94002; 94640; 94660; 94664; 94760; 99406; A4216; C1769; J0282; J0690; J1160; J1644; J1815; J1885; J2001; J2150; J2250; J2270; J2440; J2704; J2720; J3010; J3246; J3370; J3475; J3480; J7050; J7070; J7620; P9045; S0017; S0028

== ENCOUNTER 2018-06-09 11:02 | Outpatient (CLI) | payer MEDICARE ==
--- NOTE | 2018-06-09 13:15 | RAD ---
RADIOGRAPH CHEST TWO VIEW SERIES: INDICATIONS: Dyspnea. COMPARISON: 05/20/2018 FINDINGS: Mild patchy densities are seen at each lung base. No evidence of pleural effusion or pneumothorax. Stable post sternotomy noted. The cardiac silhouette is borderline in size. There is osseous degene rative change. IMPRESSION: Mild patchy bibasilar densities, which may relate to mild atelectasis or scar. POS: TPC
== END 2018-06-09 11:03 | disposition home or self-care (01) ==
LOC: RAD 11:02
PROVIDERS: ATTEND Internal Medicine Critical Care Medicine
DX: R06.00 Dyspnea, unspecified (principal); J98.4 Other disorders of lung
CPT/HCPCS: 71046

== ENCOUNTER 2018-12-02 14:34 | Outpatient (CLI) | payer MEDICARE ==
--- NOTE | 2018-12-02 15:45 | RAD ---
CHEST PA AND LATERAL: 12/02/18 HISTORY: Dyspnea. FINDINGS: Postop midline sternotomy. Approximately 2 cm diameter nodule in the right lower lobe laterally near the costophrenic angle. This appears to be stable compared to a prior 05/18/18 study. Heart size is wit hin normal limits. The lungs are clear. IMPRESSION: Overall stable appearing approximately 2 cm diameter nodule in the right lower lobe. Old granulomatou s disease. Postop midline sternotomy. No other significant acute process. Code LN
== END 2018-12-02 14:35 | disposition home or self-care (01) ==
LOC: RAD 14:34
PROVIDERS: ATTEND Internal Medicine Critical Care Medicine
DX: R06.00 Dyspnea, unspecified (principal); R91.1 Solitary pulmonary nodule; Z98.890 Other specified postprocedural states
CPT/HCPCS: 71046

== ENCOUNTER 2018-12-08 08:55 | Outpatient (CLI) | payer MEDICARE ==
--- NOTE | 2018-12-08 10:48 | PET ---
EXAM: PET CT skull to mid thigh COMPARISON: CT 12/02/2018 HISTORY: Right lower lobe pulmonary nodule TECHNIQUE: A PET/CT was performed from the skull to the mid thigh after administration of 10.9 millic uries of F-18 FDG. Evaluation was performed on a [email or web address] workstation. FINDINGS: NECK: No areas of hypermetabolic activity CHEST: A spiculated 2.3 cm mass in the right lower lobe has a maximum SUV value of 5.3. No other susp icious or hypermetabolic pulmonary nodules are seen. ABDOMEN/PELVIS: No areas of hypermetabolic activity; atherosclerotic calcifications in the aorta. SKELETON: No areas of hypermetabolic activity. Degenerative changes in the spine. CT images used for attenuation correction show no significant abnormality. IMPRESSION: The right lower lobe hypermetabolic pulmonary nodule is suspicious for malignancy.
== END 2018-12-08 08:56 | disposition home or self-care (01) ==
LOC: PET 08:55
PROVIDERS: ATTEND Internal Medicine Critical Care Medicine
DX: R91.1 Solitary pulmonary nodule (principal)
CPT/HCPCS: 78815; A9552

== ENCOUNTER 2019-01-14 06:49 | Outpatient (CLI) | payer MEDICARE | END 2019-01-14 06:50 | disposition home or self-care (01) | LOC: LABBT 06:49 | PROVIDERS: ATTEND Thoracic Surgery (Cardiothoracic Vascular Surgery) | DX: Z01.818 Encounter for other preprocedural examination (principal); R91.8 Other nonspecific abnormal finding of lung field | CPT/HCPCS: 93005; 93010 ==

== ENCOUNTER 2019-01-14 09:15 | Inpatient (IN) | payer MEDICARE ==
[2019-01-14 11:03] LABS: Hemoglobin 14.3 g/dL (14.0-18.0); Mean Corpuscular HGB CONC 33.8 g/dL (32.0-36.0); Mean Corpuscular Hemoglobin 32.4 pg (27.0-31.0); Mean Corpuscular Volume 95.8 fL (78.0-98.0); Mean Platelet Volume 7.2 fL (7.4-10.4); Platelet Count 202 thou/uL (130-400); White Blood Cell (WBC) Count 7.4 thou/uL (4.8-10.8)
[2019-01-14 11:44] LABS: Anion Gap 14 mmol/L (10-20); BUN (Urea Nitrogen) 18 mg/dL (8.4-25.7); Calc. Creatinine Clearance 0 mL/min (70-130); Calcium 9.5 mg/dL (7.8-10.44); Carbon Dioxide 25 mmol/L (23-31); Chloride 108 mmol/L (98-107); Estimated GFR-MDRD 80; Glucose 105 mg/dL (80-115); Potassium 5.1 mmol/L (3.5-5.1); Sodium 142 mmol/L (136-145)
[2019-01-18] MEDS ORDERED: Bupivacaine HCl 0.5%/Epinephrine 1:200,000/PF 30 ml Vial ONE (08:59)
[2019-01-18] MEDS ORDERED: Lidocaine 1.5% w/Epi 1:200K 30 ML VIAL (Epid Use) ONE (09:34)
[2019-01-18] MEDS ORDERED: Acetaminophen 500 MG TAB PO PRN (09:54)
[2019-01-18] MEDS ORDERED: traMADol HCl 50 MG TAB PO PRN ×2 (10:00)
[2019-01-18] MEDS ORDERED: Zolpidem Tartrate 5 MG TAB PO PRN (10:00)
[2019-01-18] MEDS ORDERED: diphenhydrAMINE 50 MG/ML VIAL IVP PRN (10:00)
[2019-01-18] MEDS ORDERED: Fentanyl 5 mcg/Bup 0.075% Cadd 100 ML EPIDURAL SCH (10:00)
[2019-01-18] MEDS ORDERED: Naloxone HCl 0.4 mg/ml Vial IV PRN (10:00)
[2019-01-18] MEDS ORDERED: Bupivacaine 0.25% 10 ML VIAL EPIDURAL PRN (10:00)
[2019-01-18] MEDS ORDERED: HYDROcodone/Acetaminophen 5/325 mg Tablet PO PRN ×4 (10:00→13:45)
[2019-01-18] MEDS ORDERED: Promethazine HCl 25 MG/ML VIAL IM PRN ×3 (10:00→13:45)
[2019-01-18] MEDS ORDERED: diphenhydrAMINE 50 MG/ML VIAL IM PRN (10:00)
[2019-01-18] MEDS ORDERED: Promethazine HCl 25 MG SUPP PR PRN (10:00)
[2019-01-18] MEDS ORDERED: Ondansetron PF 4 MG/2 ML Vial IVP PRN ×2 (10:00→13:45)
[2019-01-18] MEDS ORDERED: Naloxone HCl 0.4 mg/ml Vial IVP PRN (10:00)
[2019-01-18] MEDS ORDERED: Hydrocerin (Eucerin) Cream 120 gm Jar TOP PRN (10:00)
[2019-01-18] MEDS ORDERED: Ondansetron HCl/PF 4 MG/2 ML Vial IVP PRN (12:25)
[2019-01-18] MEDS ORDERED: Promethazine HCl 25 MG/ML VIAL SLOW IVP PRN (12:25)
[2019-01-18] MEDS ORDERED: Fentanyl 100 MCG/2 ML VIAL ONE ×3 (12:34→13:46)
[2019-01-18] MEDS ORDERED: Phenylephrine 10 MG/NS 250 ML 250 ML IVPB PRN (13:45)
[2019-01-18] MEDS ORDERED: Nitroglycerin 50 MG/250 ML BOT 250 ML IVPB PRN (13:45)
[2019-01-18] MEDS ORDERED: hydrALAZINE 20 MG/ML VIAL SLOW IVP PRN (13:45)
[2019-01-18] MEDS ORDERED: Ketorolac Tromethamine 30 MG/ML VIAL ONE (13:48)
--- NOTE | 2019-01-18 14:12 | RAD ---
PORTABLE CHEST 1 VIEW: DATE: 01/18/2019. TIME: 12:51 p.m. HISTORY: Status post thoracotomy. FINDINGS/IMPRESSION: There are changes of median sternotomy. There is a right-sided chest tube. A nodular density is see n at the right lung base. No pneumothoraces are identified. POS: [facility]
[2019-01-18] MEDS ORDERED: diphenhydrAMINE 50 MG/ML VIAL ONE (15:23)
[2019-01-18 16:11] VITALS: BMI 33.3
[2019-01-18] MEDS: Sodium Chloride 0.9% 1,000 ML IV SCH (16:55)
[2019-01-18] MEDS: Ketorolac Tromethamine 30 MG/ML VIAL IVP SCH ×2 (16:55→18:25)
[2019-01-18] MEDS ORDERED: PROPOFOL 200 MG/20 ML VIAL ONE (17:51)
[2019-01-18] MEDS ORDERED: ePHEDrine 50 MG/ML VIAL ONE (17:51)
[2019-01-18] MEDS ORDERED: Ondansetron PF 4 MG/2 ML Vial ONE (17:51)
[2019-01-18] MEDS ORDERED: PHENYLEPHRINE-NS 100 MCG/ML 10 ML SYRINGE ONE (17:51)
[2019-01-18] MEDS ORDERED: Succinylcholine Chloride 20 MG/ML 10 ml SYRINGE FS ONE (17:51)
[2019-01-18] MEDS ORDERED: Glycopyrrolate 0.2 MG/ML 5 ML SYRINGE ONE (17:51)
[2019-01-18] MEDS ORDERED: Rocuronium Bromide 10 MG/ML (10ML VIAL) ONE (17:51)
--- NOTE | 2019-01-18 18:00 | OP ---
DATE OF PROCEDURE: 01/18/2019 PREOPERATIVE DIAGNOSIS: Right lower lobe lung mass. POSTOPERATIVE DIAGNOSIS: Right lower lobe non-small cell lung cancer. PROCEDURES PERFORMED: Right thoracotomy with wedge resection of right lower lobe mass, sent for frozen, followed by right lower lobectomy with mediastinal lymph node dissection. ANESTHESIA: General endotracheal. ESTIMATED BLOOD LOSS: 250. DRAINS: 24-Azeri chest tubes x2. SPECIMENS: 1. Right lower lobe wedge, returned as non-small cell lung cancer. 2. Right lower lobe. 3. Level 7, 8, and 4R lymph nodes. DESCRIPTION OF PROCEDURE: After consent was obtained, the patient was brought to the operating room, placed in supine position on operative table. Appropriate lines and monitors were placed and general endotracheal anesthesia was induced. Flexible fiberoptic bronchoscopy was performed, confirming the endotracheal tube positioning. The patient was then placed in the left lateral decubitus position. The right chest was prepped and draped in the usual sterile fashion. Posterolateral thoracotomy incision was made and dissection into the 5th interspace was obtained with electrocautery. Chest was entered. The lung was inspected and there was easily palpable mass in the right lower lobe. This was wedged and sent for frozen section, which returned as non-small cell lung cancer. The hilum was released. Inferior pulmonary ligament was released. The pulmonary vein to the lower lobe was divided with vascular stapler. The fissure was then entered. The lower lobe pulmonary arterial branches were exposed and divided with vascular stapler. Anterior and posterior fissures were completed with a thick tissue stapler. The inferior lobe bronchus was clamped and the middle and lower lobes inflated nicely. The stapler was fired. Lower lobe removed and sent for routine pathologic exam. The bronchial stump was tested under 40 cm of water pressure. There was no air leak. Chest was copiously irrigated. 24-Azeri chest tubes x2 were placed, one on the diaphragm, one to the apex. The lung was reinflated until the chest cavity nicely. Ribs reapproximated with #1 Vicryl. Wounds were irrigated and closed in layers. Dermabond applied to skin. The patient was awakened, extubated, and transferred to the recovery room in stable condition. Needle, sponge, and instrument counts were all reported as correct at the end of the procedure. Job ID: [id number]
[2019-01-18] MEDS: diphenhydrAMINE 25 MG CAP PO PRN (18:25)
[2019-01-18] MEDS: CEFAZOLIN 2 GM in Premix Bag 1 BAG IVPB SCH (18:25)
[2019-01-18] MEDS: Carvedilol 3.125 MG TAB PO SCH (21:32)
[2019-01-19] MEDS: diphenhydrAMINE 25 MG CAP PO PRN ×2 (00:54→05:37)
[2019-01-19] MEDS: Ketorolac Tromethamine 30 MG/ML VIAL IVP SCH ×4 (00:55→18:13)
[2019-01-19] MEDS: Sodium Chloride 0.9% 1,000 ML IV SCH ×2 (00:58→04:14)
[2019-01-19] MEDS: CEFAZOLIN 2 GM in Premix Bag 1 BAG IVPB SCH ×2 (03:13→11:00)
--- NOTE | 2019-01-19 08:41 | RAD ---
CHEST ONE VIEW PORTABLE: HISTORY: Status post thoracotomy. COMPARISON: 01/18/2019 FINDINGS: Postop midline sternotomy. Right chest tube in place with pleural and parenchymal opacity changes in the right base with less inspiration than on the prior study. IMPRESSION: Slightly more prominent pleural and parenchymal changes in the right base with less inspiration and s ome right hemidiaphragm elevation, possibly related to some progressive atelectasis. POS: [facility]
[2019-01-19] MEDS: Losartan 25 MG TAB PO SCH (08:50)
[2019-01-19] MEDS: Carvedilol 3.125 MG TAB PO SCH ×2 (08:50→22:07)
[2019-01-19] MEDS ORDERED: Allopurinol 300 MG TAB PO SCH (09:00)
[2019-01-19] MEDS: Leflunomide 10 mg Tablet PO SCH (09:13)
[2019-01-19] MEDS: Aspirin 325 mg Enteric Coated Tablet PO SCH (09:14)
[2019-01-19] MEDS: Allopurinol 300 MG TAB PO SCH (09:14)
[2019-01-19] MEDS: Rosuvastatin 20 MG TAB PO SCH (09:14)
[2019-01-19] MEDS: Bupivacaine 10 ML in Sodium Chloride 0.9% 90 ML EPIDURAL SCH ×2 (09:15→21:55)
--- NOTE | 2019-01-19 17:34 | PRG ---
DATE OF SERVICE: 01/19/2019 SUBJECTIVE: Hira Lopez did well overnight. He had a thoracotomy and lobectomy yesterday. Frozen sections were suggestive of [id number] lung cancer. He is doing well postop other than pruritus. His fentanyl has been removed from his epidural because of this. OBJECTIVE: VITAL SIGNS: He is afebrile. Heart rate is 97, respiratory rate is 18, oximetry is 95% on room air, and blood pressure 155/91. LUNGS: Clear. HEART: Regular rhythm, S1 and S2 normal. ABDOMEN: Soft and nontender. EXTREMITIES: Without clubbing, cyanosis, or edema. LABORATORY DATA: White count 7.4 preop, hemoglobin 14.3. There is no lab since surgery. Electrolytes are normal. IMPRESSION: Status post lobectomy, clinically doing well. Chest x-ray shows changes suggestive of atelectasis. Pathology has been reviewed. 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 Lymph nodes at station 4 and station 8 were negative for malignancy. His lobectomy was negative for peripheral extension of the tumor or vascular invasion. It is a T2, N0, Mx tumor at this time. Further studies are pending etc. Job ID: [id number]
[2019-01-20] MEDS: Ketorolac Tromethamine 30 MG/ML VIAL IVP SCH ×2 (00:01→05:31)
[2019-01-20] MEDS: Losartan 25 MG TAB PO SCH (09:53)
[2019-01-20] MEDS: Rosuvastatin 20 MG TAB PO SCH (09:53)
[2019-01-20] MEDS: Allopurinol 300 MG TAB PO SCH (09:53)
[2019-01-20] MEDS: Leflunomide 10 mg Tablet PO SCH (09:53)
[2019-01-20] MEDS: Aspirin 325 mg Enteric Coated Tablet PO SCH (09:54)
[2019-01-20] MEDS: Carvedilol 3.125 MG TAB PO SCH (09:54)
[2019-01-20] MEDS ORDERED: HYDROcodone/Acetaminophen 10/325 mg Tablet PO PRN ×2 (10:30→10:31)
[2019-01-20 15:23] VITALS: BP 139/75; TEMP 97.7
[2019-01-20] MEDS ORDERED: Ipratropium Bromide 0.06% Nasal Inhaler 15ml NASAL SCH (18:30)
--- NOTE | 2019-01-21 04:27 | DIS ---
DATE OF ADMISSION: 01/18/2019 DATE OF DISCHARGE: 01/20/2019 DIAGNOSIS: Right lower lobe lung mass. PROCEDURE: Right thoracotomy with right lower lobectomy and mediastinal lymph node dissection. 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 DESCRIPTION OF HOSPITAL STAY: Mr. Lopez was admitted for elective right lower lobectomy. He has done well postoperatively, being discharged home today in good condition. Pathology as above. FOLLOWUP: Follow up is with me in 2 weeks with a chest x-ray at that time. Job ID: [id number]
== END 2019-01-20 18:30 | disposition home or self-care (01) | DRG 165 ==
LOC: SURG A 01-18 08:38 → CCU 01-18 15:35 → 2NO 01-19 15:31
PROVIDERS: ADMIT Thoracic Surgery (Cardiothoracic Vascular Surgery); ATTEND Thoracic Surgery (Cardiothoracic Vascular Surgery)
PROC: 0BBF0ZZ Excision of Right Lower Lung Lobe, Open Approach (ICD-10-PCS; principal; 2019-01-18)
PROC: 0BBF0ZX Excision of Right Lower Lung Lobe, Open Approach, Diagnostic (ICD-10-PCS; 2019-01-18)
PROC: 07B70ZZ Excision of Thorax Lymphatic, Open Approach (ICD-10-PCS; 2019-01-18)
DX: C34.31 Malignant neoplasm of lower lobe, right bronchus or lung (principal); Z88.2 Allergy status to sulfonamides; Z95.1 Presence of aortocoronary bypass graft; Z98.890 Other specified postprocedural states
CPT/HCPCS: 71045; 80048; 85027; 86850; 86900; 86901; 88305; 88307; 88313; 88331; 94640; J0670; J0690; J1200; J1885; J2001; J2405; J2704; J3010; J3490; J7620; P9045; Q0163

== ENCOUNTER 2019-02-07 11:35 | Outpatient (CLI) | payer MEDICARE ==
--- NOTE | 2019-02-07 11:54 | RAD ---
EXAM: Chest 2 views: HISTORY: Dyspnea COMPARISON: 12/02/2018 FINDINGS: There is a normal-sized cardiomediastinal silhouette. The patient is status post sternotomy. There is elevation right hemidiaphragm and there may be a small right pleural effusion with adjacent atelectasis. The bones are unremarkable. IMPRESSION: Small right pleural effusion
== END 2019-02-07 11:36 | disposition home or self-care (01) ==
LOC: RAD 11:35
PROVIDERS: ATTEND Thoracic Surgery (Cardiothoracic Vascular Surgery)
DX: R91.8 Other nonspecific abnormal finding of lung field (principal); J90 Pleural effusion, not elsewhere classified
CPT/HCPCS: 71046

== ENCOUNTER 2019-03-21 08:19 | Outpatient (CLI) | payer MEDICARE ==
--- NOTE | 2019-03-21 10:06 | RAD ---
PA AND LATERAL VIEWS CHEST: Date: 03/21/19 HISTORY: Dyspnea. FINDINGS: Comparison made with exam of 02/07/19. Changes of median sternotomy are again seen. The heart size is normal. The aorta is tortuous. The lef t lung is clear. A small right pleural effusion with continued elevation of the right hemidiaphragm i s again seen. There are degenerative changes in the spine. IMPRESSION: Stable exam. POS: [facility]
== END 2019-03-21 08:20 | disposition home or self-care (01) ==
LOC: RAD 08:19
PROVIDERS: ATTEND Internal Medicine Critical Care Medicine
DX: R06.00 Dyspnea, unspecified (principal)
CPT/HCPCS: 71046

== ENCOUNTER 2019-05-04 14:08 | Outpatient (CLI) | payer MEDICARE ==
--- NOTE | 2019-05-04 14:46 | RAD ---
PA AND LATERAL CHEST: Date: 05/04/19 HISTORY: Atherosclerosis of coronary arteries. Dyspnea. COMPARISON: 03/21/19. FINDINGS: Heart size is within normal limits, with postop sternotomy change. Pleural and parenchymal changes in the right base are stable as compared to the prior exam. IMPRESSION: Stable exam. POS: [facility]
== END 2019-05-04 14:09 | disposition home or self-care (01) ==
LOC: RAD 14:08
PROVIDERS: ATTEND Thoracic Surgery (Cardiothoracic Vascular Surgery)
DX: R91.8 Other nonspecific abnormal finding of lung field (principal)
CPT/HCPCS: 71046

== ENCOUNTER 2019-10-19 09:00 | Outpatient (CLI) | payer MEDICARE ==
--- NOTE | 2019-10-19 10:08 | RAD ---
EXAM: Two views chest PROVIDED CLINICAL HISTORY: Pulmonary emphysema. Right lower lobe mass. COMPARISON: 05/04/2019 FINDINGS: Median sternotomy wires are present. Cardiac silhouette and pulmonary vasculature are within normal l imits. Persistent elevation right hemidiaphragm is present with stable pleural and parenchymal lung changes at the right lung base. A nodular density is seen at the left lung base which was not seen on prior studies. This could potentially represent a nipple shadow. The left lung is otherwise clear. No other interval change IMPRESSION: 1. Nodular density projecting over left lung base most likely attributable to a nipple shadow. Aurelio marquez, follow-up chest x-ray with nipple markers in place is recommended. 2. Stable pleural and parenchymal lung changes at the right lung base. Findings may be related to ple ural and parenchymal scarring at the right lung base..
== END 2019-10-19 09:01 | disposition home or self-care (01) ==
LOC: RAD 09:00
PROVIDERS: ATTEND Thoracic Surgery (Cardiothoracic Vascular Surgery)
DX: J43.9 Emphysema, unspecified (principal); R91.8 Other nonspecific abnormal finding of lung field; J98.4 Other disorders of lung
CPT/HCPCS: 71046

== ENCOUNTER 2020-08-27 13:00 | Outpatient (CLI) | payer MEDICARE | END 2020-08-27 13:01 | disposition home or self-care (01) | LOC: BICRAD 13:00 | PROVIDERS: ATTEND Thoracic Surgery (Cardiothoracic Vascular Surgery) | DX: R91.8 Other nonspecific abnormal finding of lung field (principal) | CPT/HCPCS: 71046 ==